=== PATIENT | male | born 1930 | race Caucasian/White ===

== ENCOUNTER 2016-12-25 15:57 | Inpatient (IN) | payer MEDICARE, OTHER ==
[~2016-12-25] VITALS: Ht 165.1 cm; Wt 53.1 kg
[2016-12-25] MEDS ORDERED: IV NS 0.9% 500 ML BAG IV ONE (16:30)
[2016-12-25] MEDS ORDERED: PANTOPRAZOLE 40 MG VIAL IV ONE (16:30)
[2016-12-25] MEDS ORDERED: PANTOPRAZOLE 40 MG VIAL ONE (16:32)
[2016-12-25 16:34] LABS: BASOPHILS % (AUTO) 0.3 % (0.0-2.0); EOSINOPHILS # (AUTO) 0.3 /CMM (0.0-0.7); EOSINOPHILS % (AUTO) 2.7 % (0.0-6.0); HEMATOCRIT 22 % (39-51); HEMOGLOBIN 7.1 g/dL (13.5-17.5); LYMPHOCYTES # (AUTO) 0.8 /CMM (0.8-4.8); MEAN CORPUSCULAR HEMOGLOBIN 26 PG (26.0-33.0); MEAN CORPUSCULAR HGB CONC 33 g/dl (31.0-36.0); MEAN CORPUSCULAR VOLUME 79 fL (80-96); MONOCYTES # (AUTO) 0.7 /CMM (0.1-1.30); MONOCYTES % (AUTO) 7.8 % (2.0-12.0); NEUTROPHILS # (AUTO) 7.6 /CMM (1.8-8.9); NEUTROPHILS % (AUTO) 80.2 % (43.0-81.0); PLATELET COUNT (AUTO) 401 /CMM (150-450); RDW COEFFICIENT OF VARIATION 21.2 (11.5-15.0); RED BLOOD CELL COUNT(AUTO) 2.76 MIL/uL (4.5-6.0); WHITE BLOOD COUNT (AUTO) 9.4 K/uL (4.3-11.0)
[2016-12-25 16:41] VITALS: BP 103/57
[2016-12-25 16:43] LABS: CALCIUM, SERUM 8.7 mg/dL (8.5-10.1); CARBON DIOXIDE 32 mmol/L (21-32); CHLORIDE 103 mmol/L (98-107); GLUCOSE 105 mg/dL (74-106); POTASSIUM 4.1 mmol/L (3.5-5.1); SODIUM SERUM 136 mmol/L (136-145); UREA NITROGEN, BLOOD 31 mg/dL (7-18)
[2016-12-25 16:49] LABS: ALANINE AMINOTRANSFERASE 8 U/L (12-78); ALBUMIN 1.6 g/dL (3.4-5.0); ALKALINE PHOSPHATASE 103 U/L (46-116); ASPARTATE AMINOTRANSFERASE 16 U/L (15-37); BILIRUBIN,DIRECT 0.1 mg/dL (0.0-0.2); BILIRUBIN,TOTAL 0.1 mg/dL (0.2-1.0); LIPASE 215 U/L (73-393); TOTAL PROTEIN, SERUM 7.2 g/dL (6.4-8.2)
[2016-12-25] MEDS ORDERED: ASCO500T9 GT (16:53)
[2016-12-25] MEDS ORDERED: METO5SOL20 GT (16:53)
[2016-12-25] MEDS ORDERED: NA P133E RC (16:53)
[2016-12-25] MEDS ORDERED: ACET325T53 GT (16:53)
[2016-12-25] MEDS ORDERED: FAMO40TA7 GT (16:53)
[2016-12-25] MEDS ORDERED: ONDA4TAB5 GT (16:53)
[2016-12-25] MEDS ORDERED: CLOP75TA2 PO (16:53)
[2016-12-25] MEDS ORDERED: LEVA0.6320 IH ×2 (16:53)
[2016-12-25] MEDS ORDERED: ERYT200S16 GT (16:53)
[2016-12-25] MEDS ORDERED: TAMS0.4C34 GT (16:53)
[2016-12-25] MEDS ORDERED: BISA10SU8 RC (16:53)
[2016-12-25] MEDS ORDERED: CRAN425C GT (16:53)
[2016-12-25] MEDS ORDERED: ACET-868 GT (16:53)
[2016-12-25] MEDS ORDERED: POLY119P2 GT (16:53)
[2016-12-25] MEDS ORDERED: TRAM50TA2 GT (16:53)
[2016-12-25] MEDS ORDERED: MULT-213 GT (16:53)
[2016-12-25] MEDS ORDERED: FERR-58 GT (16:53)
[2016-12-25] MEDS ORDERED: ENOX40DI SQ (16:53)
[2016-12-25] MEDS ORDERED: PANT40TA4 GT (16:53)
[2016-12-25] MEDS ORDERED: CALC-15 GT (16:53)
[2016-12-25] MEDS ORDERED: ENOXAPARIN SODIUM 40 MG/0.4 ML DISP.SYRIN SQ SCH (18:00)
[2016-12-25] MEDS ORDERED: NA PHOS,M-B/NA PHOS,DI-BA 1 EA ENEMA RC PRN (18:00)
[2016-12-25] MEDS ORDERED: MAGNESIUM HYDROXIDE 30 ML UDC PO PRN (18:00)
[2016-12-25] MEDS ORDERED: LEVALBUTEROL HCL NEB 1.25 MG/0.5 ML VIAL.NEB NEB PRN (18:00)
[2016-12-25] MEDS ORDERED: BISACODYL SUPP (10 MG) 10 MG/SUPP.RECT SUPP.RECT RC PRN (18:00)
[2016-12-25] MEDS ORDERED: METOCLOPRAMIDE HCL 10 MG/10 ML UDC GT PRN (18:00)
[2016-12-25] MEDS ORDERED: ONDANSETRON HCL 4 MG/5 ML SOLUTION GT PRN (18:00)
[2016-12-25] MEDS ORDERED: ONDANSETRON HCL/PF 4 MG/2 ML VIAL IVP PRN (18:00)
[2016-12-25 19:08] VITALS: BP 125/70
[2016-12-25 19:30] VITALS: BP 125/70
[2016-12-25] MEDS ORDERED: TRAMADOL HCL 50 MG TABLET GT PRN (19:30)
[2016-12-25] MEDS ORDERED: ALBUTEROL FS 2.5 MG/3 ML VIAL.NEB NEB PRN (19:30)
[2016-12-25 20:00] VITALS: BP 125/70
[2016-12-25] MEDS: IV NS 0.9% 1,000 ML IV PRN (21:37)
[2016-12-25] MEDS: CEFTRIAXONE 1 G in IV D5W 50 ML IV SCH (21:42)
[2016-12-25] MEDS: AZITHROMYCIN 500 MG in IV D5W 250 ML IV SCH (21:55)
[2016-12-25] MEDS: FAMOTIDINE (20 MG) 20 MG TABLET GT SCH (21:55)
[2016-12-25] MEDS: TAMSULOSIN 0.4 MG CAP.SR.24H GT SCH (21:55)
[2016-12-26] VITALS (12 sets, daily range): BP systolic 100–149; BP diastolic 52–81
[2016-12-26 05:09] LABS: APPEARANCE,URINE SL CLOUDY (CLEAR); BILIRUBIN,URINE NEGATIVE (NEGATIVE); BLOOD, URINE 3+ Ery/uL (NEGATIVE); COLOR,URINE YELLOW (YELLOW); KETONES,URINE NEGATIVE (NEGATIVE); LEUKOCYTE ESTERASE ,URINE 3+ (NEGATIVE); NITRITE, URINE NEGATIVE (NEGATIVE); PROTEIN,URINE 2+ mg/dl (NEGATIVE); UGLUCOSE NEGATIVE (NEGATIVE); UROBILINOGEN,URINE 0.2 EU/dL (0.2)
[2016-12-26 05:22] LABS: WBC,URINE 81-100 /HPF (0-3)
[2016-12-26 05:23] LABS: BACTERIA,URINE Moderate /HPF (None Seen); SQUAMOUS EPITHELIAL CELL,UR Rare /HPF (None Seen)
[2016-12-26 07:16] LABS: BASOPHILS % (AUTO) 0.1 % (0.0-2.0); EOSINOPHILS # (AUTO) 0.2 /CMM (0.0-0.7); EOSINOPHILS % (AUTO) 2.4 % (0.0-6.0); HEMATOCRIT 25 % (39-51); HEMOGLOBIN 8.3 g/dL (13.5-17.5); LYMPHOCYTES # (AUTO) 0.7 /CMM (0.8-4.8); LYMPHOCYTES % (AUTO) 7.6 % (20.0-44.0); MEAN CORPUSCULAR HEMOGLOBIN 27 PG (26.0-33.0); MEAN CORPUSCULAR HGB CONC 34 g/dl (31.0-36.0); MEAN CORPUSCULAR VOLUME 80 fL (80-96); MONOCYTES # (AUTO) 0.7 /CMM (0.1-1.30); MONOCYTES % (AUTO) 7.6 % (2.0-12.0); NEUTROPHILS # (AUTO) 7.2 /CMM (1.8-8.9); NEUTROPHILS % (AUTO) 82.3 % (43.0-81.0); PLATELET COUNT (AUTO) 392 /CMM (150-450); RDW COEFFICIENT OF VARIATION 20.6 (11.5-15.0); RED BLOOD CELL COUNT(AUTO) 3.11 MIL/uL (4.5-6.0); WHITE BLOOD COUNT (AUTO) 8.8 K/uL (4.3-11.0)
[2016-12-26] MEDS ORDERED: PANTOPRAZOLE 40 MG TABLET.DR PO SCH (07:30)
[2016-12-26 07:47] LABS: CHOLESTEROL 86 mg/dL (<200); FERRITIN 335 ng/mL (8-388); HDL CHOLESTEROL 31 mg/dL (40-60); LDL 47 mg/dL (0-99); THYROID STIMULATING HORMONE 2.022 uIU/mL (0.358-3.74); TRIGLYCERIDES 80 mg/dL (30-150)
[2016-12-26 07:49] LABS: CALCIUM, SERUM 8.4 mg/dL (8.5-10.1); CARBON DIOXIDE 27 mmol/L (21-32); CHLORIDE 104 mmol/L (98-107); GLUCOSE 94 mg/dL (74-106); PHOSPHORUS 3.7 mg/dL (2.5-4.9); POTASSIUM 4.5 mmol/L (3.5-5.1); SODIUM SERUM 138 mmol/L (136-145); UREA NITROGEN, BLOOD 26 mg/dL (7-18)
[2016-12-26 08:06] LABS: IRON, SERUM 42 ug/dl (50-175); TOTAL IRON BINDING CAPACITY 156 ug/dl (250-450)
[2016-12-26] MEDS: ASCORBIC ACID 500 MG TABLET GT SCH (08:58)
[2016-12-26] MEDS: MULTIVITAMINS,THERAGRAN 1 UDTAB TABLET GT SCH (08:58)
[2016-12-26] MEDS ORDERED: ENOXAPARIN SODIUM 40 MG/0.4 ML DISP.SYRIN SQ SCH (09:00)
[2016-12-26] MEDS: CLOPIDOGREL BISULFATE 75 MG TABLET GT SCH (09:01)
[2016-12-26] MEDS: FERROUS SULFATE (325 MG) 325 MG/TAB TABLET GT SCH (09:01)
[2016-12-26] MEDS: CALCIUM CARB 600MG /VIT D 1 EACH TABLET GT SCH (09:04)
[2016-12-26] MEDS ORDERED: FIBERSOURCE HN 1,000 ML BOTTLE GT PRN (16:30)
[2016-12-26] MEDS: IV NS 0.9% 1,000 ML IV PRN (16:45)
[2016-12-26] MEDS: FIBERSOURCE HN 1,000 ML BOTTLE GT PRN (17:43)
[2016-12-26] MEDS: Z GUARD REMEDY 2 OZ OINT TP SCH (17:44)
[2016-12-26] MEDS: HYDROGEL DRESSING 90 GM TUBE TP SCH (17:46)
[2016-12-26] MEDS: CEFTRIAXONE 1 G in IV D5W 50 ML IV SCH (19:28)
[2016-12-26] MEDS: AZITHROMYCIN 500 MG in IV D5W 250 ML IV SCH (20:27)
[2016-12-26] MEDS: TAMSULOSIN 0.4 MG CAP.SR.24H GT SCH (21:50)
[2016-12-26] MEDS: FAMOTIDINE (20 MG) 20 MG TABLET GT SCH (21:50)
[2016-12-27] VITALS (7 sets, daily range): BP systolic 110–132; BP diastolic 60–69
[2016-12-27] MEDS: IV NS 0.9% 1,000 ML IV PRN ×2 (06:14→20:28)
[2016-12-27 07:55] LABS: EOSINOPHILS # (AUTO) 0.3 /CMM (0.0-0.7); EOSINOPHILS % (AUTO) 2.9 % (0.0-6.0); HEMATOCRIT 23 % (39-51); HEMOGLOBIN 7.9 g/dL (13.5-17.5); LYMPHOCYTES # (AUTO) 0.7 /CMM (0.8-4.8); LYMPHOCYTES % (AUTO) 7.1 % (20.0-44.0); MEAN CORPUSCULAR HEMOGLOBIN 27 PG (26.0-33.0); MEAN CORPUSCULAR HGB CONC 34 g/dl (31.0-36.0); MEAN CORPUSCULAR VOLUME 80 fL (80-96); MONOCYTES # (AUTO) 0.7 /CMM (0.1-1.30); MONOCYTES % (AUTO) 6.8 % (2.0-12.0); NEUTROPHILS # (AUTO) 8.2 /CMM (1.8-8.9); NEUTROPHILS % (AUTO) 83.2 % (43.0-81.0); PLATELET COUNT (AUTO) 374 /CMM (150-450); RDW COEFFICIENT OF VARIATION 21.7 (11.5-15.0); RED BLOOD CELL COUNT(AUTO) 2.89 MIL/uL (4.5-6.0); WHITE BLOOD COUNT (AUTO) 9.8 K/uL (4.3-11.0)
[2016-12-27] MEDS: Z GUARD REMEDY 2 OZ OINT TP SCH (08:19)
[2016-12-27] MEDS: CALCIUM CARB 600MG /VIT D 1 EACH TABLET GT SCH ×2 (08:19→09:00)
[2016-12-27] MEDS: FERROUS SULFATE (325 MG) 325 MG/TAB TABLET GT SCH ×2 (08:19→09:00)
[2016-12-27] MEDS: MULTIVITAMINS,THERAGRAN 1 UDTAB TABLET GT SCH ×2 (08:19→09:00)
[2016-12-27] MEDS: CLOPIDOGREL BISULFATE 75 MG TABLET GT SCH ×2 (08:19→09:00)
[2016-12-27] MEDS: ASCORBIC ACID 500 MG TABLET GT SCH ×2 (08:19→09:00)
[2016-12-27] MEDS: HYDROGEL DRESSING 90 GM TUBE TP PRN (08:20)
[2016-12-27] MEDS: HYDROGEL DRESSING 90 GM TUBE TP SCH (08:21)
[2016-12-27 08:38] LABS: CALCIUM, SERUM 8.3 mg/dL (8.5-10.1); CARBON DIOXIDE 27 mmol/L (21-32); CHLORIDE 105 mmol/L (98-107); CREATININE 0.8 mg/dL (0.6-1.3); GLUCOSE 127 mg/dL (74-106); MAGNESIUM 1.8 mg/dL (1.8-2.4); PHOSPHORUS 3.2 mg/dL (2.5-4.9); POTASSIUM 4.4 mmol/L (3.5-5.1); SODIUM SERUM 137 mmol/L (136-145); UREA NITROGEN, BLOOD 27 mg/dL (7-18)
[2016-12-27 08:39] LABS: PREALBUMIN 16.6 MG/DL (18.0-35.7)
[2016-12-27] MEDS: LACTOBACILLUS RHAMNOSUS GG 1 EACH CAP.SPRINK PO SCH (17:00)
[2016-12-27] MEDS ORDERED: FEE PK DOSING 1 MIN EA MC ONE (18:43)
[2016-12-27] MEDS: VANCOMYCIN 1 GM in IV D5W 250 ML IV SCH (20:16)
[2016-12-27] MEDS: MEROPENEM 500 MG in IV NS 0.9% 50 ML IV SCH (21:22)
[2016-12-27] MEDS: MUPIROCIN OINT 2% 22 GM TUBE SCH (21:24)
[2016-12-27] MEDS: TAMSULOSIN 0.4 MG CAP.SR.24H GT SCH (21:55)
[2016-12-27] MEDS: FAMOTIDINE (20 MG) 20 MG TABLET GT SCH (21:56)
[2016-12-28] VITALS (11 sets, daily range): BP systolic 104–158; BP diastolic 52–82
[2016-12-28 07:09] LABS: BASOPHILS % (AUTO) 0.3 % (0.0-2.0); EOSINOPHILS # (AUTO) 0.3 /CMM (0.0-0.7); EOSINOPHILS % (AUTO) 4.7 % (0.0-6.0); HEMATOCRIT 22 % (39-51); HEMOGLOBIN 7.5 g/dL (13.5-17.5); LYMPHOCYTES # (AUTO) 0.7 /CMM (0.8-4.8); LYMPHOCYTES % (AUTO) 9.9 % (20.0-44.0); MEAN CORPUSCULAR HEMOGLOBIN 28 PG (26.0-33.0); MEAN CORPUSCULAR HGB CONC 34 g/dl (31.0-36.0); MEAN CORPUSCULAR VOLUME 82 fL (80-96); MONOCYTES # (AUTO) 0.6 /CMM (0.1-1.30); MONOCYTES % (AUTO) 8.8 % (2.0-12.0); NEUTROPHILS # (AUTO) 5.1 /CMM (1.8-8.9); NEUTROPHILS % (AUTO) 76.3 % (43.0-81.0); PLATELET COUNT (AUTO) 366 /CMM (150-450); RDW COEFFICIENT OF VARIATION 21.5 (11.5-15.0); RED BLOOD CELL COUNT(AUTO) 2.67 MIL/uL (4.5-6.0); WHITE BLOOD COUNT (AUTO) 6.7 K/uL (4.3-11.0)
[2016-12-28 07:18] LABS: ALANINE AMINOTRANSFERASE 11 U/L (12-78); ALKALINE PHOSPHATASE 73 U/L (46-116); ASPARTATE AMINOTRANSFERASE 18 U/L (15-37); BILIRUBIN,DIRECT 0.1 mg/dL (0.0-0.2); BILIRUBIN,TOTAL 0.2 mg/dL (0.2-1.0); CALCIUM, SERUM 8.3 mg/dL (8.5-10.1); CARBON DIOXIDE 22 mmol/L (21-32); CHLORIDE 107 mmol/L (98-107); CREATININE 0.8 mg/dL (0.6-1.3); GLUCOSE 90 mg/dL (74-106); MAGNESIUM 1.7 mg/dL (1.8-2.4); PHOSPHORUS 3.4 mg/dL (2.5-4.9); POTASSIUM 3.9 mmol/L (3.5-5.1); SODIUM SERUM 139 mmol/L (136-145); TOTAL PROTEIN, SERUM 6.6 g/dL (6.4-8.2); UREA NITROGEN, BLOOD 22 mg/dL (7-18)
[2016-12-28 07:48] LABS: ALBUMIN 1.4 g/dL (3.4-5.0)
[2016-12-28] MEDS: VANCOMYCIN 1 GM in IV D5W 250 ML IV SCH ×2 (08:41→19:51)
[2016-12-28] MEDS: HYDROGEL DRESSING 90 GM TUBE TP PRN ×3 (08:45→09:11)
[2016-12-28] MEDS: MUPIROCIN OINT 2% 22 GM TUBE SCH ×2 (08:45→21:10)
[2016-12-28] MEDS: Z GUARD REMEDY 2 OZ OINT TP SCH (08:45)
[2016-12-28] MEDS: CALCIUM CARB 600MG /VIT D 1 EACH TABLET GT SCH (09:00)
[2016-12-28] MEDS: ASCORBIC ACID 500 MG TABLET GT SCH (09:00)
[2016-12-28] MEDS: MULTIVITAMINS,THERAGRAN 1 UDTAB TABLET GT SCH (09:00)
[2016-12-28] MEDS: FERROUS SULFATE (325 MG) 325 MG/TAB TABLET GT SCH (09:00)
[2016-12-28] MEDS: LACTOBACILLUS RHAMNOSUS GG 1 EACH CAP.SPRINK PO SCH ×2 (09:00→17:00)
[2016-12-28] MEDS: HYDROGEL DRESSING 90 GM TUBE TP SCH (09:12)
[2016-12-28] MEDS: MEROPENEM 500 MG in IV NS 0.9% 50 ML IV SCH ×2 (10:01→21:10)
[2016-12-28] MEDS: Magnesium 1GM/D5W 100ML PREMIX 100 ML IV SCH ×2 (10:43→11:44)
[2016-12-28] MEDS: IV NS 0.9% 1,000 ML IV PRN (14:50)
[2016-12-28] MEDS: TAMSULOSIN 0.4 MG CAP.SR.24H GT SCH (22:00)
[2016-12-28] MEDS: FAMOTIDINE (20 MG) 20 MG TABLET GT SCH (22:00)
[2016-12-29] VITALS (15 sets, daily range): BP systolic 136–176; BP diastolic 73–96
[2016-12-29] MEDS ORDERED: hydrALAZINE HCL IV 20 MG VIAL IV PRN (02:30)
[2016-12-29] MEDS: IV NS 0.9% 1,000 ML IV PRN (05:37)
[2016-12-29 07:03] LABS: CARBON DIOXIDE 24 mmol/L (21-32); CHLORIDE 107 mmol/L (98-107); CREATININE 0.9 mg/dL (0.6-1.3); GLUCOSE 87 mg/dL (74-106); MAGNESIUM 2.1 mg/dL (1.8-2.4); POTASSIUM 3.5 mmol/L (3.5-5.1); SODIUM SERUM 142 mmol/L (136-145); UREA NITROGEN, BLOOD 18 mg/dL (7-18)
[2016-12-29] MEDS: VANCOMYCIN 1 GM in IV D5W 250 ML IV SCH (08:43)
[2016-12-29] MEDS: MULTIVITAMINS,THERAGRAN 1 UDTAB TABLET GT SCH (08:48)
[2016-12-29] MEDS: ASCORBIC ACID 500 MG TABLET GT SCH (08:48)
[2016-12-29] MEDS: CALCIUM CARB 600MG /VIT D 1 EACH TABLET GT SCH (08:48)
[2016-12-29] MEDS: LACTOBACILLUS RHAMNOSUS GG 1 EACH CAP.SPRINK PO SCH ×2 (08:48→17:00)
[2016-12-29] MEDS: FERROUS SULFATE (325 MG) 325 MG/TAB TABLET GT SCH (08:48)
[2016-12-29] MEDS: MUPIROCIN OINT 2% 22 GM TUBE SCH ×2 (08:49→21:37)
[2016-12-29] MEDS: Z GUARD REMEDY 2 OZ OINT TP PRN (08:49)
[2016-12-29] MEDS: HYDROGEL DRESSING 90 GM TUBE TP PRN (08:50)
[2016-12-29] MEDS: Z GUARD REMEDY 2 OZ OINT TP SCH (08:51)
[2016-12-29] MEDS: HYDROGEL DRESSING 90 GM TUBE TP SCH (08:51)
[2016-12-29] MEDS: MEROPENEM 500 MG in IV NS 0.9% 50 ML IV SCH ×2 (10:26→21:37)
[2016-12-29 17:10] LABS: BASOPHILS % (AUTO) 0.4 % (0.0-2.0); EOSINOPHILS # (AUTO) 0.3 /CMM (0.0-0.7); EOSINOPHILS % (AUTO) 3.9 % (0.0-6.0); HEMATOCRIT 33 % (39-51); HEMOGLOBIN 10.7 g/dL (13.5-17.5); LYMPHOCYTES # (AUTO) 0.8 /CMM (0.8-4.8); LYMPHOCYTES % (AUTO) 10.1 % (20.0-44.0); MEAN CORPUSCULAR HEMOGLOBIN 27 PG (26.0-33.0); MEAN CORPUSCULAR HGB CONC 33 g/dl (31.0-36.0); MEAN CORPUSCULAR VOLUME 82 fL (80-96); MONOCYTES # (AUTO) 0.4 /CMM (0.1-1.30); MONOCYTES % (AUTO) 5.4 % (2.0-12.0); NEUTROPHILS # (AUTO) 6.5 /CMM (1.8-8.9); NEUTROPHILS % (AUTO) 80.2 % (43.0-81.0); PLATELET COUNT (AUTO) 495 /CMM (150-450); RDW COEFFICIENT OF VARIATION 20.4 (11.5-15.0); RED BLOOD CELL COUNT(AUTO) 4.02 MIL/uL (4.5-6.0); WHITE BLOOD COUNT (AUTO) 8.1 K/uL (4.3-11.0)
[2016-12-29] MEDS: FAMOTIDINE (20 MG) 20 MG TABLET GT SCH (22:27)
[2016-12-29] MEDS: FIBERSOURCE HN 1,000 ML BOTTLE GT PRN (22:27)
[2016-12-29] MEDS: TAMSULOSIN 0.4 MG CAP.SR.24H GT SCH (22:27)
[2016-12-30] VITALS (8 sets, daily range): BP systolic 110–175; BP diastolic 60–91
[2016-12-30 07:41] LABS: CALCIUM, SERUM 8.3 mg/dL (8.5-10.1); CARBON DIOXIDE 22 mmol/L (21-32); CHLORIDE 107 mmol/L (98-107); CREATININE 0.9 mg/dL (0.6-1.3); GLUCOSE 116 mg/dL (74-106); POTASSIUM 3.7 mmol/L (3.5-5.1); SODIUM SERUM 139 mmol/L (136-145); UREA NITROGEN, BLOOD 21 mg/dL (7-18)
[2016-12-30] MEDS: MULTIVITAMINS,THERAGRAN 1 UDTAB TABLET GT SCH (08:59)
[2016-12-30] MEDS: MEROPENEM 500 MG in IV NS 0.9% 50 ML IV SCH ×2 (08:59→21:24)
[2016-12-30] MEDS: LACTOBACILLUS RHAMNOSUS GG 1 EACH CAP.SPRINK PO SCH ×2 (08:59→16:41)
[2016-12-30] MEDS: CALCIUM CARB 600MG /VIT D 1 EACH TABLET GT SCH (08:59)
[2016-12-30] MEDS: ASCORBIC ACID 500 MG TABLET GT SCH (08:59)
[2016-12-30] MEDS: FERROUS SULFATE UDC 300 MG/5 ML UDC GT SCH (08:59)
[2016-12-30] MEDS: HYDROGEL DRESSING 90 GM TUBE TP SCH (09:04)
[2016-12-30] MEDS: MUPIROCIN OINT 2% 22 GM TUBE SCH ×2 (09:04→21:24)
[2016-12-30] MEDS: Z GUARD REMEDY 2 OZ OINT TP SCH (09:05)
[2016-12-30 09:27] LABS: BASOPHILS % (AUTO) 0.2 % (0.0-2.0); EOSINOPHILS # (AUTO) 0.1 /CMM (0.0-0.7); EOSINOPHILS % (AUTO) 1.3 % (0.0-6.0); HEMATOCRIT 28 % (39-51); HEMOGLOBIN 9.1 g/dL (13.5-17.5); LYMPHOCYTES # (AUTO) 0.7 /CMM (0.8-4.8); LYMPHOCYTES % (AUTO) 8.1 % (20.0-44.0); MEAN CORPUSCULAR HEMOGLOBIN 27 PG (26.0-33.0); MEAN CORPUSCULAR HGB CONC 33 g/dl (31.0-36.0); MEAN CORPUSCULAR VOLUME 81 fL (80-96); MONOCYTES # (AUTO) 0.8 /CMM (0.1-1.30); MONOCYTES % (AUTO) 8.8 % (2.0-12.0); NEUTROPHILS # (AUTO) 7.5 /CMM (1.8-8.9); NEUTROPHILS % (AUTO) 81.6 % (43.0-81.0); PLATELET COUNT (AUTO) 431 /CMM (150-450); RDW COEFFICIENT OF VARIATION 20.8 (11.5-15.0); WHITE BLOOD COUNT (AUTO) 9.1 K/uL (4.3-11.0)
[2016-12-30] MEDS: MAGNESIUM HYDROXIDE 30 ML UDC GT PRN (11:17)
[2016-12-30] MEDS: IV NS 0.9% 1,000 ML IV PRN (11:21)
[2016-12-30] MEDS ORDERED: DOCUSATE SODIUM 100 MG CAPSULE PO SCH (13:30)
[2016-12-30] MEDS: DOCUSATE SODIUM LIQ 100 MG/10 ML UDC NG SCH (16:40)
[2016-12-30] MEDS ORDERED: VANCOMYCIN 0.75 GM in IV D5W 250 ML IV SCH (18:00)
[2016-12-30] MEDS: TAMSULOSIN 0.4 MG CAP.SR.24H GT SCH (21:24)
[2016-12-30] MEDS: FAMOTIDINE (20 MG) 20 MG TABLET GT SCH (21:24)
[2016-12-30] MEDS: FIBERSOURCE HN 1,000 ML BOTTLE GT PRN (21:25)
[2016-12-31] VITALS: BP 137/67
[2016-12-31] MEDS: IV NS 0.9% 1,000 ML IV PRN ×2 (01:05→21:34)
[2016-12-31 04:00] VITALS: BP 125/62
[2016-12-31 07:34] LABS: EOSINOPHILS # (AUTO) 0.2 /CMM (0.0-0.7); EOSINOPHILS % (AUTO) 1.4 % (0.0-6.0); HEMATOCRIT 27 % (39-51); HEMOGLOBIN 8.8 g/dL (13.5-17.5); LYMPHOCYTES # (AUTO) 0.6 /CMM (0.8-4.8); LYMPHOCYTES % (AUTO) 5.2 % (20.0-44.0); MEAN CORPUSCULAR HEMOGLOBIN 27 PG (26.0-33.0); MEAN CORPUSCULAR HGB CONC 33 g/dl (31.0-36.0); MEAN CORPUSCULAR VOLUME 82 fL (80-96); MONOCYTES # (AUTO) 0.8 /CMM (0.1-1.30); MONOCYTES % (AUTO) 6.8 % (2.0-12.0); NEUTROPHILS # (AUTO) 9.7 /CMM (1.8-8.9); NEUTROPHILS % (AUTO) 86.6 % (43.0-81.0); PLATELET COUNT (AUTO) 365 /CMM (150-450); RDW COEFFICIENT OF VARIATION 20.5 (11.5-15.0); RED BLOOD CELL COUNT(AUTO) 3.24 MIL/uL (4.5-6.0); WHITE BLOOD COUNT (AUTO) 11.2 K/uL (4.3-11.0)
[2016-12-31 07:56] LABS: CARBON DIOXIDE 26 mmol/L (21-32); CHLORIDE 108 mmol/L (98-107); CREATININE 0.8 mg/dL (0.6-1.3); GLUCOSE 138 mg/dL (74-106); POTASSIUM 4.1 mmol/L (3.5-5.1); SODIUM SERUM 141 mmol/L (136-145); UREA NITROGEN, BLOOD 20 mg/dL (7-18); VANCOMYCIN,TROUGH 18 ug/ml (12-20)
[2016-12-31 08:00] VITALS: BP 143/72
[2016-12-31] MEDS: HYDROGEL DRESSING 90 GM TUBE TP SCH (09:32)
[2016-12-31] MEDS: Z GUARD REMEDY 2 OZ OINT TP SCH (09:32)
[2016-12-31] MEDS: MEROPENEM 500 MG in IV NS 0.9% 50 ML IV SCH ×2 (09:33→21:26)
[2016-12-31] MEDS: MULTIVITAMINS,THERAGRAN 1 UDTAB TABLET GT SCH (09:33)
[2016-12-31] MEDS: ASCORBIC ACID 500 MG TABLET GT SCH (09:33)
[2016-12-31] MEDS: CALCIUM CARB 600MG /VIT D 1 EACH TABLET GT SCH (09:33)
[2016-12-31] MEDS: DOCUSATE SODIUM LIQ 100 MG/10 ML UDC NG SCH ×2 (09:33→17:56)
[2016-12-31] MEDS: MUPIROCIN OINT 2% 22 GM TUBE SCH ×2 (09:33→21:29)
[2016-12-31] MEDS: LACTOBACILLUS RHAMNOSUS GG 1 EACH CAP.SPRINK PO SCH ×2 (09:33→17:56)
[2016-12-31] MEDS: FERROUS SULFATE UDC 300 MG/5 ML UDC GT SCH (09:34)
[2016-12-31] MEDS: VANCOMYCIN 0.75 GM in IV D5W 250 ML IV SCH (10:33)
[2016-12-31 12:00] VITALS: BP 113/59
[2016-12-31 16:00] VITALS: BP 127/71
[2016-12-31 20:00] VITALS: BP 101/56
[2016-12-31] MEDS: FIBERSOURCE HN 1,000 ML BOTTLE GT PRN (21:26)
[2016-12-31] MEDS: FAMOTIDINE (20 MG) 20 MG TABLET GT SCH (21:28)
[2016-12-31] MEDS: TAMSULOSIN 0.4 MG CAP.SR.24H GT SCH (21:34)
[2016-12-31] MEDS: MAGNESIUM HYDROXIDE 30 ML UDC GT PRN (22:07)
[2017-01-01] VITALS: BP 117/70
[2017-01-01 04:00] VITALS: BP 140/63
[2017-01-01 06:50] LABS: BASOPHILS % (AUTO) 0.1 % (0.0-2.0); EOSINOPHILS # (AUTO) 0.4 /CMM (0.0-0.7); EOSINOPHILS % (AUTO) 3.8 % (0.0-6.0); HEMATOCRIT 25 % (39-51); HEMOGLOBIN 8.4 g/dL (13.5-17.5); LYMPHOCYTES # (AUTO) 0.9 /CMM (0.8-4.8); MEAN CORPUSCULAR HEMOGLOBIN 27 PG (26.0-33.0); MEAN CORPUSCULAR HGB CONC 33 g/dl (31.0-36.0); MEAN CORPUSCULAR VOLUME 82 fL (80-96); MONOCYTES # (AUTO) 0.7 /CMM (0.1-1.30); MONOCYTES % (AUTO) 6.1 % (2.0-12.0); NEUTROPHILS # (AUTO) 9.1 /CMM (1.8-8.9); PLATELET COUNT (AUTO) 335 /CMM (150-450); RDW COEFFICIENT OF VARIATION 20.5 (11.5-15.0); RED BLOOD CELL COUNT(AUTO) 3.05 MIL/uL (4.5-6.0); WHITE BLOOD COUNT (AUTO) 11.1 K/uL (4.3-11.0)
[2017-01-01 07:01] VITALS: BP 152/83
[2017-01-01 07:03] LABS: CALCIUM, SERUM 8.1 mg/dL (8.5-10.1); CARBON DIOXIDE 25 mmol/L (21-32); CHLORIDE 107 mmol/L (98-107); CREATININE 0.8 mg/dL (0.6-1.3); GLUCOSE 117 mg/dL (74-106); MAGNESIUM 1.8 mg/dL (1.8-2.4); PHOSPHORUS 2.8 mg/dL (2.5-4.9); POTASSIUM 4.2 mmol/L (3.5-5.1); SODIUM SERUM 139 mmol/L (136-145); UREA NITROGEN, BLOOD 23 mg/dL (7-18)
[2017-01-01] MEDS: MEROPENEM 500 MG in IV NS 0.9% 50 ML IV SCH ×2 (09:32→21:30)
[2017-01-01] MEDS: MUPIROCIN OINT 2% 22 GM TUBE SCH ×2 (09:35→21:29)
[2017-01-01] MEDS: Z GUARD REMEDY 2 OZ OINT TP SCH (09:35)
[2017-01-01] MEDS: HYDROGEL DRESSING 90 GM TUBE TP SCH (09:36)
[2017-01-01] MEDS: LACTOBACILLUS RHAMNOSUS GG 1 EACH CAP.SPRINK PO SCH ×2 (09:51→16:44)
[2017-01-01] MEDS: ASCORBIC ACID 500 MG TABLET GT SCH (09:51)
[2017-01-01] MEDS: MULTIVITAMINS,THERAGRAN 1 UDTAB TABLET GT SCH (09:51)
[2017-01-01] MEDS: CALCIUM CARB 600MG /VIT D 1 EACH TABLET GT SCH (09:51)
[2017-01-01] MEDS: FERROUS SULFATE UDC 300 MG/5 ML UDC GT SCH (09:51)
[2017-01-01] MEDS: DOCUSATE SODIUM LIQ 100 MG/10 ML UDC NG SCH ×2 (09:51→16:44)
[2017-01-01] MEDS: VANCOMYCIN 0.75 GM in IV D5W 250 ML IV SCH (10:50)
[2017-01-01] MEDS ORDERED: FIBERSOURCE HN 1,000 ML BOTTLE GT PRN (15:30)
[2017-01-01 16:00] VITALS: BP 131/68
[2017-01-01] MEDS: IV NS 0.9% 1,000 ML IV PRN (16:44)
[2017-01-01 20:00] VITALS: BP 148/78
[2017-01-01] MEDS: TAMSULOSIN 0.4 MG CAP.SR.24H GT SCH (21:30)
[2017-01-01] MEDS: FAMOTIDINE (20 MG) 20 MG TABLET GT SCH (21:30)
[2017-01-02] VITALS: BP 145/78
[2017-01-02 04:00] VITALS: BP 153/86
[2017-01-02] MEDS: IV NS 0.9% 1,000 ML IV PRN (05:20)
[2017-01-02 07:37] LABS: BASOPHILS % (AUTO) 0.2 % (0.0-2.0); EOSINOPHILS # (AUTO) 0.6 /CMM (0.0-0.7); HEMATOCRIT 27 % (39-51); HEMOGLOBIN 9.1 g/dL (13.5-17.5); LYMPHOCYTES # (AUTO) 0.9 /CMM (0.8-4.8); MEAN CORPUSCULAR HEMOGLOBIN 27 PG (26.0-33.0); MEAN CORPUSCULAR HGB CONC 33 g/dl (31.0-36.0); MEAN CORPUSCULAR VOLUME 82 fL (80-96); MONOCYTES # (AUTO) 0.5 /CMM (0.1-1.30); NEUTROPHILS # (AUTO) 6.4 /CMM (1.8-8.9); NEUTROPHILS % (AUTO) 75.8 % (43.0-81.0); PLATELET COUNT (AUTO) 288 /CMM (150-450); RDW COEFFICIENT OF VARIATION 20.8 (11.5-15.0); RED BLOOD CELL COUNT(AUTO) 3.32 MIL/uL (4.5-6.0); WHITE BLOOD COUNT (AUTO) 8.4 K/uL (4.3-11.0)
[2017-01-02 08:00] VITALS: BP 127/55
[2017-01-02 08:03] LABS: CALCIUM, SERUM 8.2 mg/dL (8.5-10.1); CARBON DIOXIDE 26 mmol/L (21-32); CHLORIDE 105 mmol/L (98-107); CREATININE 0.7 mg/dL (0.6-1.3); GLUCOSE 88 mg/dL (74-106); POTASSIUM 4.3 mmol/L (3.5-5.1); SODIUM SERUM 137 mmol/L (136-145); UREA NITROGEN, BLOOD 20 mg/dL (7-18)
[2017-01-02] MEDS: MEROPENEM 500 MG in IV NS 0.9% 50 ML IV SCH (08:40)
[2017-01-02] MEDS ORDERED: PROSOURCE / PROSTAT (PYXIS) 30 ML UDC GT SCH (09:00)
[2017-01-02] MEDS: Z GUARD REMEDY 2 OZ OINT TP PRN (10:42)
[2017-01-02] MEDS: HYDROGEL DRESSING 90 GM TUBE TP SCH (10:42)
[2017-01-02] MEDS: MUPIROCIN OINT 2% 22 GM TUBE SCH (10:43)
[2017-01-02] MEDS: CALCIUM CARB 600MG /VIT D 1 EACH TABLET GT SCH (10:43)
[2017-01-02] MEDS: FERROUS SULFATE UDC 300 MG/5 ML UDC GT SCH (10:44)
[2017-01-02] MEDS: MULTIVITAMINS,THERAGRAN 1 UDTAB TABLET GT SCH (10:44)
[2017-01-02] MEDS: LACTOBACILLUS RHAMNOSUS GG 1 EACH CAP.SPRINK PO SCH (10:45)
[2017-01-02] MEDS: DOCUSATE SODIUM LIQ 100 MG/10 ML UDC NG SCH (10:45)
[2017-01-02] MEDS: ASCORBIC ACID 500 MG TABLET GT SCH (10:45)
[2017-01-02] MEDS: Z GUARD REMEDY 2 OZ OINT TP SCH (10:46)
[2017-01-02] MEDS: VANCOMYCIN 0.75 GM in IV D5W 250 ML IV SCH (10:56)
[2017-01-02] MEDS ORDERED: VANC750F2 IV (11:24)
[2017-01-02] MEDS ORDERED: MERO500V IV (11:24)
[2017-01-02 12:00] VITALS: BP 129/68
== END 2017-01-02 15:15 | DRG 710 ==
LOC: ER 16:02 → TELE 18:35
PROVIDERS: ADMIT Nurse Practitioner Acute Care; ATTEND Nurse Practitioner Acute Care
PROC: 5A1955Z Respiratory Ventilation, Greater than 96 Consecutive Hours (ICD-10-PCS; principal; 2016-12-25)
PROC: 30233N1 Transfusion of Nonautologous Red Blood Cells into Peripheral Vein, Percutaneous Approach (ICD-10-PCS; 2016-12-26)
PROC: 0KBP0ZZ Excision of Left Hip Muscle, Open Approach (ICD-10-PCS; 2016-12-28)
PROC: 0KBN0ZZ Excision of Right Hip Muscle, Open Approach (ICD-10-PCS; 2016-12-28)
PROC: B547ZZA Ultrasonography of Left Subclavian Vein, Guidance (ICD-10-PCS; 2016-12-31)
PROC: 05H633Z Insertion of Infusion Device into Left Subclavian Vein, Percutaneous Approach (ICD-10-PCS; 2016-12-31)
DX: A41.9 Sepsis, unspecified organism (principal); N17.0 Acute kidney failure with tubular necrosis; J15.6 Pneumonia due to other Gram-negative bacteria; E43 Unspecified severe protein-calorie malnutrition; J15.9 Unspecified bacterial pneumonia; G93.40 Encephalopathy, unspecified; L89.154 Pressure ulcer of sacral region, stage 4; Z99.11 Dependence on respirator [ventilator] status; J96.11 Chronic respiratory failure with hypoxia; J95.851 Ventilator associated pneumonia; L89.213 Pressure ulcer of right hip, stage 3; Z93.0 Tracheostomy status; R53.2 Functional quadriplegia; L89.223 Pressure ulcer of left hip, stage 3; K92.2 Gastrointestinal hemorrhage, unspecified; D68.59 Other primary thrombophilia; L89.323 Pressure ulcer of left buttock, stage 3; L89.313 Pressure ulcer of right buttock, stage 3; E88.09 Other disorders of plasma-protein metabolism, not elsewhere classified; G30.9 Alzheimer's disease, unspecified; F02.80 Dementia in other diseases classified elsewhere, unspecified severity, without behavioral disturbance, psychotic disturbance, mood disturbance, and anxiety; Z93.1 Gastrostomy status; D50.9 Iron deficiency anemia, unspecified; I10 Essential (primary) hypertension; Z86.73 Personal history of transient ischemic attack (TIA), and cerebral infarction without residual deficits; E86.0 Dehydration; M62.50 Muscle wasting and atrophy, not elsewhere classified, unspecified site; Y81.3 Surgical instruments, materials and general- and plastic-surgery devices (including sutures) associated with adverse incidents; Y84.8 Other medical procedures as the cause of abnormal reaction of the patient, or of later complication, without mention of misadventure at the time of the procedure; Y92.129 Unspecified place in nursing home as the place of occurrence of the external cause; L89.620 Pressure ulcer of left heel, unstageable; Z68.1 Body mass index [BMI] 19.9 or less, adult; R64 Cachexia; Z22.322 Carrier or suspected carrier of Methicillin resistant Staphylococcus aureus; N40.1 Benign prostatic hyperplasia with lower urinary tract symptoms; M86.9 Osteomyelitis, unspecified; K56.41 Fecal impaction; B96.20 Unspecified Escherichia coli [E. coli] as the cause of diseases classified elsewhere; D69.2 Other nonthrombocytopenic purpura; N39.0 Urinary tract infection, site not specified; R13.10 Dysphagia, unspecified; Z85.21 Personal history of malignant neoplasm of larynx
CPT/HCPCS: 31720; 36415; 36569; 71010-TC; 80048-TC; 80061-TC; 80076-TC; 80202-TC; 81000-TC; 82272-TC; 82728-TC; 83540-TC; 83605-TC; 83690-TC; 83735-TC; 84100-TC; 84134-TC; 84443-TC; 85025-TC; 86850-TC; 86921-TC; 87040-TC; 87081-TC; 87086-TC; 87186-TC; 94002-TC; 94003-TC; 94760-TC; 99082-TC; A4216; A4606; A6248; A6253; A6402; A6403; C9113; J0456; J0696; J2185; J3370; J3475; J7030; J7040; J7050; J7060; J8597; P9016-BL; Q0162; Z7610